=== PATIENT | female | born 1965 | race Caucasian/White ===

== ENCOUNTER 2023-11-08 11:44 | Emergency (ER) | payer BC ==
[2023-11-08] MEDS ORDERED: LIDOCAINE 1% MPF 5 ML VIAL ONE (12:20)
[2023-11-08] MEDS ORDERED: HYDROCODONE/APAP 5/325 MG TAB ONE (12:20)
--- NOTE | 2023-11-08 12:41 | RAD REPORT ---
EXAM DESCRIPTION: RAD - Hand Right 2 View - 11/08/2023 12:33 pm CLINICAL HISTORY: Pain;Swelling COMPARISON: No comparisons FINDINGS: Soft tissue laceration seen distal second finger. No fracture or radiopaque foreign body s een.
--- NOTE | 2023-11-08 13:33 | ER ---
Nurse's Notes [facility] Name: Diya Redmond Age: 58 yrs Sex: Female : 1965 Arrival Date: 11/08/2023 Time: 11:44 Bed 9 Private MD: Diagnosis: Laceration without foreign body of right index finger without damage to nail Presentation: 11/07 11:58 Chief complaint: Chief complaint: Patient states: opening a sticky note, razor blade me1 was stuck to the back had to pull the razor blade out of finger. 11:59 Coronavirus screen: At this time, the client does not indicate any symptoms associated ko1 with coronavirus-19. Ebola Screen: No symptoms or risks identified at this time. Complicating Factors: There are no complicating factors for this patient. Initial Sepsis Screen: Does the patient meet any 2 criteria? No. Patient's initial sepsis screen is negative. Does the patient have a suspected source of infection? No. Patient's initial sepsis screen is negative. Risk Assessment: Do you want to hurt yourself or someone else? Patient reports no desire to harm self or others. Onset of symptoms is unknown. Care prior to arrival: Bleeding of injury controlled. Mechanism of Injury: Laceration sustained at home, while working, from razor blade, Injury was accidental. 11:59 Method Of Arrival: Ambulatory ko1 11:59 Acuity: HERBERT 4 ko1 Triage Assessment: 12:02 General: Appears in no apparent distress. Behavior is calm, cooperative, appropriate ko1 for age. Pain: Complains of pain in right 1st fingertip. Pain: Injury Description: Laceration sustained to right 1st finger. Historical: - Allergies: 12:02 No Known Allergies; ko1 - PSHx: 12:02 colon surgery; ko1 - Immunization history:: Adult Immunizations up to date, Last tetanus immunization: up to date. - Infectious Disease History:: Denies. - Social history:: Smoking status: Patient denies any tobacco usage or history of. Screenin:27 [facility] ED Fall Risk Assessment (Adult) History of falling in the last 3 months, me1 including since admission No falls in past 3 months (0 pts) Confusion or Disorientation No (0 pts) Intoxicated or Sedated No (0 pts) Impaired Gait No (0 pts) Mobility Assist Device Used No (0 pt) Altered Elimination No (0 pt) Score/Fall Risk Level 0 - 2 = Low Risk Maintained a safe environment, Provided non-skid footwear, Hourly rounding (assess needs \T\ fall precautionary measures) done. Abuse screen: Denies threats or abuse. Nutritional screening: No deficits noted. Tuberculosis screening: No symptoms or risk factors identified. Assessment: 12:27 General: Appears uncomfortable, well groomed, well developed, well nourished, Behavior me1 is calm, cooperative, appropriate for age, Reports opening a sticky note, razor blade was stuck to the back had to pull the razor blade out of right index finger. Pain: Complains of pain in palmar aspect of distal phalanx of right index finger Pain does not radiate. Pain currently is 5 out of 10 on a pain scale. Quality of pain is described as throbbing, Pain began suddenly, Is continuous. Neuro: Level of Consciousness is awake, alert, obeys commands, Oriented to person, place, time, situation, Appropriate for age. Cardiovascular: Capillary refill < 3 seconds Patient's skin is warm and dry. Respiratory: Airway is patent Respiratory effort is even, unlabored, Respiratory pattern is regular, symmetrical. GI: No signs and/or symptoms were reported involving the gastrointestinal system. : No signs and/or symptoms were reported regarding the genitourinary system. Derm: Wound noted palmar aspect of distal phalanx of right index finger Wound is laceration. Musculoskeletal: No signs and/or symptoms reported regarding the musculoskeletal system. Injury Description: Laceration sustained to palmar aspect of distal phalanx of right index finger is clean. Vital Signs: 12:02 BP 140 / 118; Pulse 67; Resp 18; Temp 97; Pulse Ox 99% ; ko1 13:28 Pain 2/10; me1 14:00 BP 132 / 80; Pulse 71; Resp 14; Temp 98.1(O); Pulse Ox 97% on R/A; ld1 13:28 Pain Scale: Adult me1 ED Course: 11:45 Patient arrived in ED. mg5 11:46 Roxy Cleaning [facility] jh7 11:46 Wesley Foley MD is Attending Physician. 7 12:02 Triage completed. ko1 12:02 Arm band placed on right wrist. Patient placed in waiting room, Patient notified of ko1 wait time. 12:13 Yahaira Christopher, RN is Primary Nurse. me1 12:27 Patient has correct armband on for positive identification. Bed in low position. Side me1 rails up X 1. Provided Education on: POC. Verbalized understanding. . 12:27 No provider procedures requiring assistance completed. Patient did not have IV access me1 during this emergency room visit. 12:35 XRAY Hand RIGHT 2 View In Process Unspecified. EDMS Administered Medications: 12:24 Drug: HYDROcodone-acetaminophen PO 5 mg-325 mg 1 tabs PO once Route: PO; me1 13:28 Follow up: Pain 2/10 Adult; Response: No adverse reaction; Pain is decreased me1 13:27 Drug: Lidocaine Infiltration (1 %) 5 ml 5 ml Infiltration once; to bedside {Note: me1 Administered by ROEL Ramos.} Volume: 5 ml; Route: Infiltration; 13:28 Follow up: Response: No adverse reaction; Pain is decreased me1 Medication: 12:27 VIS not applicable for this client. me1 Outcome: 13:33 Discharge ordered by . [facility] 14:00 Discharged to home ambulatory, 1 14:00 Condition: stable 14:00 Discharge instructions given to patient, Instructed on discharge instructions, follow up and referral plans. medication usage, Demonstrated understanding of instructions, follow-up care, medications, Prescriptions given X 1, 14:00 Patient left the ED. ld1 Signatures: [facility] Elva Moy RN RN ld1 Roxy Cleaning FNP FNP [facility] Flora Fisher RN RN ko1 Eddleman, Michelle, RN RN Ebony Esquivel mg5 Corrections: (The following items were deleted from the chart) 12:02 11:58 Chief complaint: ko1 ko1 12:27 11:58 Chief complaint: Patient states: opening a sticky note, razor blade was stuck to me1 the back had to pull the razor blade out of finger Chief complaint: Patient states: opening a sticky note, razor blade was stuck to the back had to pull the razor blade out of finger ko1
--- NOTE | 2023-11-08 13:33 | EDPHYS ---
Physician Documentation [facility] Name: Diya Redmond Age: 58 yrs Sex: Female : 1965 Arrival Date: 11/08/2023 Time: 11:44 Bed 9 Private MD: ED Physician Wesley Foley HPI: 11/07 11:58 This 58 yrs old Female presents to ER via Ambulatory with complaints of Laceration To [facility] Hand - Finger. 11:58 58-year-old female with no significant past medical history presents to the ER for [facility] right index finger laceration. She reports that she was cleaning out a drawer and that there was a razor blade stuck to a sticky note. She reports that the blade was inserted deep in her finger and that she is concerned that it hit the bone. Reports significant bleeding after the injury. The patient has full range of motion.. Historical: - Allergies: 12:02 No Known Allergies; ko1 - PSHx: 12:02 colon surgery; ko1 - Immunization history:: Adult Immunizations up to date, Last tetanus immunization: up to date. - Infectious Disease History:: Denies. - Social history:: Smoking status: Patient denies any tobacco usage or history of. ROS: 11:58 Constitutional: Per HPI [facility] Exam: 11:58 Constitutional: This is a well developed, well nourished patient who is awake, alert, jh7 and in no acute distress. Head/Face: Normocephalic, atraumatic. Neck: Trachea midline, no thyromegaly or masses palpated, and no cervical lymphadenopathy. Supple, full range of motion without nuchal rigidity, or vertebral point tenderness. No Meningismus. Cardiovascular: Regular rate and rhythm with a normal S1 and S2. No gallops, murmurs, or rubs. Normal PMI, no JVD. No pulse deficits. Respiratory: Lungs have equal breath sounds bilaterally, clear to auscultation and percussion. No rales, rhonchi or wheezes noted. No increased work of breathing, no retractions or nasal flaring. Abdomen/GI: Soft, non-tender, with normal bowel sounds. No distension or tympany. No guarding or rebound. No evidence of tenderness throughout. Back: No spinal tenderness. No costovertebral tenderness. Full range of motion. MS/ Extremity: Pulses equal, no cyanosis. Neurovascular intact. Full, normal range of motion. Neuro: Awake and alert, GCS 15, oriented to person, place, time, and situation. Motor strength 5/5 in all extremities. Sensory grossly intact. Normal gait. 11:58 Skin: injury, laceration(s), the wound is approximately 2.5 cm(s), of the palmar aspect of distal phalanx of right index finger, Vital Signs: 12:02 BP 140 / 118; Pulse 67; Resp 18; Temp 97; Pulse Ox 99% ; ko1 13:28 Pain 2/10; me1 14:00 BP 132 / 80; Pulse 71; Resp 14; Temp 98.1(O); Pulse Ox 97% on R/A; ld1 13:28 Pain Scale: Adult me1 Laceration: 13:00 Wound Repair of 2.5cm ( 1.0in ) subcutaneous laceration to palmar aspect of distal jh7 phalanx of right index finger. Distal neuro/vascular/tendon intact. Anesthesia: Digital block administered with 5 mls of 1% lidocaine. Wound prep: Moderate cleansing with betadine with hibiclenz by nv. Skin closed with 5 5-0 Prolene using simple sutures and sterile technique. Dressed with non-adherent dressing. Patient tolerated well. MDM: 11:46 Patient medically screened. [facility] 13:45 Differential diagnosis: superficial laceration, tendon injury, vascular injury. Data [facility] reviewed: vital signs, nurses notes, radiologic studies, plain films. I considered the following discharge prescriptions or medication management in the emergency department Medications were administered in the Emergency Department. See MAR. Independent interpretation of the following test(s) in the Emergency Department X-Ray: My interpretation is no acute fractures. Counseling: I had a detailed discussion with the patient and/or guardian regarding the historical points, exam findings, and any diagnostic results supporting the discharge/admit diagnosis, to return to the emergency department if symptoms worsen or persist or if there are any questions or concerns that arise at home. Response to treatment: the patient's symptoms have markedly improved after treatment. ED course: Patient stated that her tetanus was up-to-date.. 11/07 12:02 Order name: XRAY Hand RIGHT 2 View; Complete Time: 12:47 [facility] 11/07 12:02 Order name: Dressing - Wound; Complete Time: 12:16 [facility] 11/07 12:02 Order name: Gloves, Sterile; Complete Time: 12:16 [facility] 11/07 12:02 Order name: Prolene, Sutures; Complete Time: 13:28 [facility] 11/07 12:02 Order name: Setup Suture Tray; Complete Time: 12:16 [facility] 11/07 13:34 Order name: Recheck Blood Pressure; Complete Time: 13:59 7 Administered Medications: 12:24 Drug: HYDROcodone-acetaminophen PO 5 mg-325 mg 1 tabs PO once Route: PO; me1 13:28 Follow up: Pain 2/10 Adult; Response: No adverse reaction; Pain is decreased me1 13:27 Drug: Lidocaine Infiltration (1 %) 5 ml 5 ml Infiltration once; to bedside {Note: me1 Administered by ROEL Ramos.} Volume: 5 ml; Route: Infiltration; 13:28 Follow up: Response: No adverse reaction; Pain is decreased me1 Disposition: 19:55 Co-signature as Attending Physician, Wesley Foley MD I reviewed the patient's care rn provided by the Advanced Practice Provider and agree with the diagnosis and treatment plan. Disposition Summary: 11/08/23 13:33 Discharge Ordered Notes: Location: Home [facility] Problem: new [facility] Symptoms: have improved [facility] Condition: Stable [facility] Diagnosis - Laceration without foreign body of right index finger without damage to nail [facility] Followup: [facility] - With: Private Physician - When: 7 - 10 days - Reason: Staple/Suture removal Discharge Instructions: - Discharge Summary Sheet [facility] - Laceration Care, Adult [facility] Forms: - Medication Reconciliation Form [facility] - Thank You Letter [facility] - Antibiotic Education [facility] - Patient Portal Instructions [facility] - Leadership Thank You Letter [facility] Prescriptions: - Cephalexin 500 mg Oral capsule - take 1 capsule ORAL route every 12 hours for 7 days; 14 capsule; Refills: 0, jh7 Product Selection Permitted Signatures: Dispatcher [employer] Wesley Alanis MD MD rn Hadash, Jennifer, FNP FNP [facility] Flora Fisher RN RN ko1 Yahaira Christopher RN RN me1
[2023-11-08 14:34] VITALS: BP 132/80; TEMP 98.1; O2SAT 97
== END 2023-11-08 14:00 | disposition home or self-care (01) ==
LOC: ER 11:44
PROC: 0HQFXZZ Repair Right Hand Skin, External Approach (ICD-10-PCS; principal; 2023-11-08)
DX: S61.210A Laceration without foreign body of right index finger without damage to nail, initial encounter (principal)
CPT/HCPCS: 73120; 99283; 12001; J2001